=== PATIENT | male | born 2000 | race Caucasian/White ===

== ENCOUNTER 2023-06-09 16:16 | Emergency (ER) | payer OTHER, SELFPAY ==
[2023-06-09 16:31] VITALS: BP 137/99; PULSE 86; RESP 16; TEMP 36.8; O2SAT 98
--- NOTE | 2023-06-09 16:35 | XRR_ITS ---
PROCEDURE INFORMATION: Exam: XR Right Hand Exam date and time: 06/09/2023 4:54 PM Age: 23 years old Clinical indication: Injury or trauma; Other: Not specified; Blunt trauma (contusions or hematomas); Hand; Right TECHNIQUE: Imaging protocol: Radiologic exam of the right hand. Views: 3 or more views. COMPARISON: No relevant prior studies available. FINDINGS: Bones/joints: There is a soft tissue defect at the tip of the middle finger with a minimally displaced fracture of the tuft of the distal phalanx of the middle finger. No dislocation. Soft tissues: See Bones/joints finding. XR/XR hand RT min 3V* [id number] IMPRESSION: Soft tissue defect at the tip of the middle finger with a minimal displaced fracture of the tuft of the distal phalanx of the middle finger.
--- NOTE | 2023-06-09 16:43 | W.ED.WOUNDLC ---
HPI - Wound/Laceration General: Chief Complaint: Wound/Laceration Stated Complaint: hand injury Time Seen by Provider: 06/09/23 16:43 History of Present Illness: Patient comes in today for complaints of injury to the right middle finger. Patient works at a [employer] and accidentally got his finger tip in the blade of the soft. Patient has an partial skin avulsion with nail involvement to the distal right middle finger on the dorsal side. Patient cannot recall his last tetanus. Patient denies any chronic medical problems. Review of Systems General: Reports: 10 or more systems reviewed and unremarkable except in HPI and below Physical Exam Const: COMMON NORMALS: alert HENMT: COMMON NORMALS: normocephalic HEAD & SCALP: normocephalic Neck/C-Spine: COMMON NORMALS: full ROM Resp: COMMON NORMALS: normal respiratory effort Cardio: COMMON NORMALS: regular rate RATE: regular rate Back/Pelvis: COMMON NORMALS: thoracic and lumbar spine normal to inspection Neuro: SENSORIUM/ORIENTATION: Yes alert Skin: TRAUMA: laceration (Distal right middle finger) Procedures Laceration Laceration 1: Site: hand Side (If applicable): right (Middle finger) Size (cm): 3 Description: flap and irregular Local Anesthetic: lidocaine 2% Amount of anesthesia used (mL): 3 Pre-repair: wound explored and irrigated extensively Skin layer closed with: nylon Size (cm): 5-0 Number of sutures: 4 Technique: simple, interrupted Course Vital Signs: Vital signs: Vital Signs Temperature 98.2 F 06/09/23 16:31 Pulse Rate 74 06/09/23 18:25 Respiratory Rate 15 06/09/23 18:25 Blood Pressure 137/99 06/09/23 16:31 Pulse Oximetry 97 06/09/23 18:25 Oxygen Delivery Me thod Room Air 06/09/23 16:31 MDM - Wound/Laceration Medical Decision Making 23-year-old male patient comes in today with complaints of laceration to the distal right middle finger while at work. Patient accidentally got his middle finger into the sawblade at the [employer] he works for. On exam patient has an irregular laceration with a skin flap to the distal right middle finger involving the lateral aspect of the nail. Bleeding is controlled. Differential diagnosis includes laceration, neurovascular injury, nailbed injury, foreign body, fracture. X-ray noted a superficial injury to the tuft of the distal phalanx. Reviewed exam with Dr. Negro Abarca, orthopedist, he recommended loose closure and follow-up in his office at 10:00 in the morning. Wound was thoroughly irrigated and closed with four 5-0 nylon sutures. Patient tolerated well. Patient was given 1 g of Ancef and updated his tetanus. Patient be kept on Augmentin and given hydrocodone for pain. Lab Data Radiology Impressions Hand X-Ray 06/09/23 16:35 IMPRESSION: Soft tissue defect at the tip of the middle finger with a minimal displaced fracture of the tuft of the distal phalanx of the middle finger. All radiology interpretation(s) finalized by discharge Discharge Plan Discharge Patient Disposition: Home Clinical Impression: Laceration of finger nail bed Qualifiers: Encounter type: initial encounter Qualified Code(s): S61.319A - Laceration without foreign body of unspecified finger with damage to nail, initial encounter Condition: Stable Prescriptions: New amoxicillin-pot clavulanate 875-125 mg tablet 1 tab PO BID Qty: 14 0RF hydrocodone-acetaminophen 5-325 mg tablet 1 tab PO Q6H PRN (Reason: pain) Qty: 10 0RF Discharge Orders: Discharge ED (Routine); Ordered 06/09/23 Ordered By: Devante Costa Referrals: Negro Abarca DO [Physician] - 06/10/23 10:00 am Discharge Diet: Usual diet Discharge Activity: Increase activity as tolerated Patient Instructions: Opioid Safety, Pain Management Activity Restrictions/Additional Instructions: Keep wound clean and dry. N.p.o. 8 hours prior to follow-up in the physician's office. May take medication with small glass of water. Keep wound dressed and the dressing from the emergency department. Dr. Abarca will review the wound and consider if surgery is necessary. Return to ED for new concerns. Coding Level of Care Code ED Compliance Manager for Jarek Martinez
--- NOTE | 2023-06-09 17:30 | PC.NURSE ---
Wound cleaned, soaking in betadine/sterile water
[2023-06-09] MEDS: tetanus-dipt-pertussis 0.5 mL SDV IM (17:53)
[2023-06-09] MEDS: ceFAZolin 1,000 MG in water for injection-sterile 2.5 ML 0.01 MG IM (17:54)
[2023-06-09 18:25] VITALS: PULSE 74; RESP 15; O2SAT 97
== END 2023-06-09 18:27 | disposition home or self-care (01) ==
PROVIDERS: Emergency Provider Nurse Practitioner Family
DX: S61.312A Laceration without foreign body of right middle finger with damage to nail, initial encounter (principal); W27.0XXA Contact with workbench tool, initial encounter; Y99.0 Civilian activity done for income or pay; Z23 Encounter for immunization
CPT/HCPCS: 12002; 73130; 90471; 90715; 96372; 99284; J0690

== ENCOUNTER → 2023-06-10 12:07 | Day surgery (SDC) | payer OTHER, SELFPAY ==
[2023-06-10] VITALS (16 sets, daily range): BP systolic 111–137; BP diastolic 68–89; PULSE 63–94; RESP 14–18; TEMP 36.7; O2SAT 98–100; BMI 25.8
--- NOTE | 2023-06-10 | XR_ITS ---
WS: [id number] C-arm fluoroscopy views of the right third finger, 06/10/2023 Clinical Data: [place] PICS Comparison: None. Findings: There is a single image of the distal phalanx of the right third finger. Impression: Image of the right third finger.
[2023-06-10] MEDS: sodium chloride 0.9% 1,000 ML 30 ML IV (12:56)
[2023-06-10] MEDS: acetaminophen 1,000 MG/100 ML PIGGYBACK 400 MG IV (12:59)
[2023-06-10] MEDS: ketorolac 30 mg/mL INJ IVP (12:59)
--- NOTE | 2023-06-10 15:01 | W.PM.OPSUD ---
Surgery/Procedure H&P Update DATE OF PROCEDURE: June 10, 2023 DATE H&P PERFORMED: 06/10/23 H&P UPDATE INFORMATION: I have reviewed H&P completed within last 30 days, I have examined patient prior to procedure and No changes to prior documentation PREOP DIAGNOSIS: Right middle finger nailbed injury, open distal phalanx fracture PRIMARY INDICATION FOR PROCEDURE: Right middle finger nailbed injury, open distal phalanx fracture PLANNED PROCEDURE: Operation Date: 06/10/23 14:00 Proposed Procedures p Debridement Upper Extremity/ Right middle finger irrigation and debridement with nail bed repair(Right) - Negro Abarca DO
[2023-06-10] MEDS: ceFAZolin 2,000 MG in sodium chloride 0.9% (plus) 50 ML 100 MG IV (15:20)
[2023-06-10] MEDS: BUPivacaine 0.5% INJ 10 mL INJECTION (15:36)
[2023-06-10] MEDS: ROPivacaine 0.5% SDV 30 mL 150 MG INJECTION (15:36)
--- NOTE | 2023-06-10 16:20 | P.BOP_ITS ---
Date of Procedure: [June 10, 2023] Surgeon: [Dr. Abarca DO] Industrial Diamond Polisher(s): [Joaquim Abarca PA-C] Procedure(s) performed: [Right middle finger irrigation and debridement, nailbed repair wound size 2 cm x 1 cm x 0.5cm] Findings of the procedure(s): [Right middle finger nailbed injury, open distal phalanx fracture] Estimated blood loss: [1 ml] Specimen(s) removed: [n/a] Post-operative diagnosis: [Right middle finger nailbed injury, open distal phalanx fracture]
--- NOTE | 2023-06-10 16:30 | P.OP_ITS ---
Operative Report Date of procedure: June 10, 2023 Pre-op diagnosis: Right middle finger traumatic tablesaw injury Post-op diagnosis: Right middle finger open distal phalanx fracture and nailbed injury Procedure done: Right middle finger irrigation debridement (2 cm x 1 cm x 0.5 cm) Right middle finger nailbed repair Surgeon: Negro Abarca DO [employer] Boards Pinner: Joaquim Abarca PA-C: PA was necessary for assistance in this case with hand positioning to execute the procedure, retraction and protection of neurovascular structures as well as to assist with wound closure and dressing application. Anesthesia: Local Estimated blood loss: 1mL 35 minutes Complications: None Findings: See operative report narrative Condition: stable Disposition: same day Brief History: Patient is a 23-year-old gentleman who sustained a tablesaw injury to the right middle finger. This is on the ulnar half of the digit at the distal phalanx disrupting the nail as well as open distal phalanx fractures emergency departme nt received appropriate bedside cleanout antibiotics and sent for follow-up the following morning he had been n.p.o. Saw him the following morning, today, and given his young age as well as the extent of the injury with nailbed disruption we talked about treatment options and through shared decision making he elects proceed with surgical intervention right middle finger irrigation debridement and nailbed repair. He understands and sounds procedure the risk benefits complication alternatives surgery through shared decision make elects proceed with surgical intervention all questions answered. Procedure: Patient seen evaluated preoperative holding area, consent was reviewed and signed with patient correct extremity was then marked. At this point in time he had drank some soda earlier we talked about anesthesia and agreed to proceed with only local only anesthesia. Once ready for surgery was taken back to the operative suite kept on [facility] armboard applied to the right upper extremity at this point in time he was monitored appropriately with the nursing staff at the head of the bed. At this point in time the right upper extremity was then prepped and draped in standard orthopedic fashion. Final timeout performed patient received appropriate preoperative antibiotics. At this point in time Under sterile aseptic technique patient underwent a digital block to the right middle finger he tolerated this well without any issues this was allowed to set the patient was verified of having appropriate anesthesia to proceed with the surgery. This point time a finger turnicot was then placed. I then subsequently proceeded with evaluation of the extent of the injury patient had a longitudinal flap entering from proximal to distal on the ulnar half of the right middle finger leaving a loose skin flap ulnarly and cutting down to the bone as well as disrupting the nailbed. At this point time I removed the nail plate with a [place] this was then gently moved and I subsequently made a small incision in the eponychial fold radially and then removed the nail atraumatically. I visualize the germinal matrix was intact the sawblade did come just past the germinal matrix and entered the sterile matrix and took the roughly 20% of the ulnar side. At this point in time I then subsequently proceeded with my irrigation and debridement of a total of 2 cm x 1 cm x 0.5 cm of skin subcutaneous tissue fascia and bone as well as matrix. Once appropriate debridement of all nonviable tissue was then performed I then thoroughly irrigated the entire area. I removed debride all nonviable tissue with sharp scalpel excision a rongeur. I brought the mini C arm to confirm the small bony fragment that was seen on previous x-rays this was then subsequently removed and then proceeded with curettage and the bone and thoroughly irrigation once ready for closure I then visualized the sterile matrix and then placed this back into position while this was held by my life science research assistant and utilizing 6-0 chromic suture repaired the sterile matrix with multiple stitches. There was some maceration and rough edges in the corner near the eponychial fold and as result holding the eponychial fold up I then placed a drop of Dermabond to help seal this area. This was allowed appropriately cure before laying the eponychial fold down. Once this was done I then subsequently performed multiple simple interrupted stitches with nylon stitch around the flap the flap did have some slight nonviability and white color to it but at the same time this would be a great biological dressing as this is a been appropriately debrided. As result this was all tacked back down and closed in standard fashion. I then subsequently cut out a Xeroform dressing and placed this under and that the eponychial fold. At this point in time the turnicot was then removed hemostasis was satisfactory appropriate dressings applied of Xeroform 4 x 4's Curlex Sree wrap and a soft dressing. Patient tolerated this procedure without any issues when taken to recovery in stable condition. Patient understands agrees to current plan. Questions answered. Disposition: Patient taken to PACU in stable condition recovering well. Will receive appropriate discharge structure as well as pain medication postoperative antibiotics. Will follow-up with him in 2 weeks. Patient understands agrees to current plan. Questions answered.
== END | disposition home or self-care (01) ==
PROVIDERS: Visit Provider Student in an Organized Health Care Education/Training Program
PROC: (CPT 11044; principal; 2023-06-10 14:00)
DX: S62.632A Displaced fracture of distal phalanx of right middle finger, initial encounter for closed fracture (principal); W31.2XXA Contact with powered woodworking and forming machines, initial encounter
CPT/HCPCS: 11044; 11760; 73140; 76000; J0131; J0690; J1885; J2795; J3490; J7030

== ENCOUNTER 2023-06-23 06:00 | Outpatient (CLI) | payer OTHER, SELFPAY | END 2023-06-23 23:59 | disposition home or self-care (01) | LOC: SOT 06-27 08:06 | PROVIDERS: Visit Provider Student in an Organized Health Care Education/Training Program | DX: Z46.89 Encounter for fitting and adjustment of other specified devices (principal); S61.319D Laceration without foreign body of unspecified finger with damage to nail, subsequent encounter; W31.2XXD Contact with powered woodworking and forming machines, subsequent encounter | CPT/HCPCS: 97760; L3925 ==

== ENCOUNTER 2023-07-01 06:00 | Outpatient (RCR) | payer OTHER, SELFPAY | END 2023-07-31 23:59 | disposition home or self-care (01) | LOC: SOT 06:00 | PROVIDERS: Visit Provider Student in an Organized Health Care Education/Training Program | DX: Z47.89 Encounter for other orthopedic aftercare (principal) | CPT/HCPCS: 97110; 97165 ==